=== PATIENT | male | born 1995 | race Caucasian/White ===

== ENCOUNTER 2018-11-26 21:06 | Emergency (ER) | payer SELFPAY ==
--- NOTE | 2018-11-26 21:45 | ED ---
GI/ HPI - HPI Summary HPI Summary: A 23 y/o male accompanied by a friend presents to the ED c/o bruising on tip of penis. As per triage, "Pt reports a bruising to the tip of his penis, unknown origin". According to the patient, he was taking a shower earlier when he noticed a tiny bit of bruising near the tip of his penis. He noted that he has never seen it before, it does not hurt or sting, and has not felt anything. Patient denies urinary symptoms. Patient is on no medications. - History of Current Complaint Chief Complaint: EDUrogenitalProblems Time Seen by Provider: 11/26/18 21:31 Stated Complaint: BRUISING IN GROIN AREA Hx Obtained From: Patient Onset/Duration: Started Minutes Ago, Still Present Timing: Constant Current Severity: None Pain Intensity: 0 Additional Locations for Males: Penis Pain Characteristics: Other: - NONE Associated Signs and Symptoms: Positive: Negative Aggravating Factor(s): Nothing Alleviating Factor(s): Nothing - Allergy/Home Medications Allergies/Adverse Reactions: Allergies Allergy/AdvReac Type Severity Reaction Status Date / Time No Known Allergies Allergy Verified 11/26/18 21:11 PMH/Surg Hx/FS Hx/Imm Hx Endocrine/Hematology History: Denies: Hx Diabetes, Hx Thyroid Disease Cardiovascular History: Denies: Hx Hypertension Respiratory History: Reports: Hx Asthma Denies: Hx Chronic Obstructive Pulmonary Disease (COPD) GI History: Denies: Hx Ulcer - Surgical History Surgery Procedure, Year, and Place: inguinal hernias as a child Infectious Disease History: No Infectious Disease History: Denies: Hx Hepatitis, Hx Human Immunodeficiency Virus (HIV), Traveled Outside the [place] in Last 30 Days - Family History Known Family History: Positive: Cardiac Disease, Hypertension, Other - cancer - Social History Alcohol Use: Rare Substance Use Type: Reports: Marijuana Smoking Status (MU): Light Every Day Tobacco Smoker Amount Used/How Often: 1 pack every 2-3 days Review of Systems Negative: Fever Positive: no symptoms reported Positive: Bruising - on tip of penis All Other Systems Reviewed And Are Negative: Yes Physical Exam - Summary Physical Exam Summary: VITAL SIGNS: Reviewed. GENERAL: Patient is a well-developed and nourished male who is lying comfortable in the stretcher. Patient is not in any acute respiratory distress. HEAD AND FACE: No signs of trauma. No ecchymosis, hematomas or skull depressions. No sinus tenderness. EYES: PERRLA, EOMI x 2, No injected conjunctiva, no nystagmus. EARS: Hearing grossly intact. Ear canals and tympanic membranes are within normal limits. MOUTH: Oropharynx within normal limits. NECK: Supple, trachea is midline, no adenopathy, no JVD, no carotid bruit, no c- spine tenderness, neck with full ROM. CHEST: Symmetric, no tenderness at palpation LUNGS: Clear to auscultation bilaterally. No wheezing or crackles. CVS: Regular rate and rhythm, S1 and S2 present, no murmurs or gallops appreciated. ABDOMEN: Soft, non-tender. No signs of distention. No rebound no guarding, and no masses palpated. Bowel sounds are normal. EXTREMITIES: FROM in all major joints, no edema, no cyanosis or clubbing. NEURO: Alert and oriented x 3. No acute neurological deficits. Speech is normal and follows commands. SKIN: Dry and warm. Small area of mild ecchymosis at glans penis, no pain, no discharge, no swelling. Triage Information Reviewed: Yes Vital Signs On Initial Exam: Initial Vitals Temp Pulse Resp BP Pulse Ox 100.0 F 91 16 132/79 99 11/26/18 21:10 11/26/18 21:10 11/26/18 21:10 11/26/18 21:10 11/26/18 21:10 Vital Signs Reviewed: Yes Diagnostics - Vital Signs Vital Signs Temp Pulse Resp BP Pulse Ox 11/26/18 21:10 100.0 F 91 16 132/79 99 - Laboratory Lab Statement: Any lab studies that have been ordered have been reviewed, and results considered in the medical decision making process. GIGU Course/Dx - Course Course Of Treatment: A 23 y/o male accompanied by a friend presents to the ED c/ o bruising on tip of penis. Physical examination findings significant for small area of mild ecchymosis at glans penis, no pain, no discharge, no swelling. No laboratory scans were done. No laboratory screens were done. In the ED course, the patient received no medications. Patient will be discharged with a diagnosis of contusion. Patient is to follow up with primary care provider in 1- 2 days. Patient is to return to ED for any new or worsening symptoms. Patient is agreeable with this plan. - Diagnoses Provider Diagnoses: Contusion Discharge - Sign-Out/Discharge Documenting (check all that apply): Patient Departure - DISCHARGE - Discharge Plan Condition: Stable Disposition: HOME Patient Education Materials: Contusion in Adults (ED) Referrals: [facility] [Outside] - 2 Days [facility] [Outside] - 2 Days Additional Instructions: FOLLOW UP WITH PRIMARY CARE PROVIDER IN 1-2 DAYS. RETURN TO ED FOR ANY NEW OR WORSENING SYMPTOMS. - Attestation Statements Document Initiated by Heidiibe: Yes Documenting Scribe: Lino Leblanc Provider For Whom Baldomero is Documenting (Include Credential): Torsten Elmore MD Scribe Attestation: Lino Segundo scribed for Torsten Elmore MD on 11/26/18 at 2140. Status of Scribe Document: Ready
[2018-11-26 21:57] VITALS: BP 123/75
== END 2018-11-26 21:59 | disposition home or self-care (01) ==
LOC: ED 21:06
DX: S30.21XA Contusion of penis, initial encounter (principal); X58.XXXA Exposure to other specified factors, initial encounter; Y92.9 Unspecified place or not applicable; J45.909 Unspecified asthma, uncomplicated; F17.210 Nicotine dependence, cigarettes, uncomplicated
CPT/HCPCS: 99281